=== PATIENT | female | born 1940 | race Hispanic/Latino ===

== ENCOUNTER 2021-06-09 16:02 | Inpatient (IN) | payer OTHER ==
[~2021-06-09] VITALS: Ht 157.5 cm; Wt 69.0 kg
[2021-06-09 16:34] LABS: BASOPHILS % (AUTO) 0.4 % (0.0-5.0); EOSINOPHILS % (AUTO) 1.2 % (0.0-8.0); HEMATOCRIT 28.7 % (36-48); LYMPHOCYTES % (AUTO) 30.3 % (21.0-51.0); MEAN CORPUSCULAR HEMOGLOBIN 32.1 pg (27.0-33.0); MEAN CORPUSCULAR HGB CONC 33.8 g/dL (32.0-36.0); NEUTROPHILS % (AUTO) 60.8 % (40.0-77.0); PLATELET COUNT (AUTO) 154 K/uL (130-400); RED BLOOD CELL COUNT(AUTO) 3.02 MIL/uL (4.00-5.50); RED CELL DISTRIBUTION WIDTH 16.3 % (11.0-15.5); WHITE BLOOD COUNT (AUTO) 6.8 K/uL (4.8-10.8)
[2021-06-09 16:43] LABS: INR 1.22 (0.85-1.15); PROTHROMBIN TIME 13.1 SEC (9.6-11.6)
[2021-06-09 16:44] LABS: CREATININE 2.5 mg/dL (0.5-1.5); PARTIAL THROMBOPLASTIN TIME 29.4 SEC (26.3-35.5); POTASSIUM 5.1 mmol/L (3.5-5.1)
[2021-06-09] MEDS ORDERED: FURO20TA4 PO (16:44)
[2021-06-09] MEDS ORDERED: ONDA4TAB10 PO (16:44)
[2021-06-09] MEDS ORDERED: LISI20TA24 PO ×2 (16:44→20:57)
[2021-06-09] MEDS ORDERED: LACT10SO32 PO (16:44)
[2021-06-09] MEDS ORDERED: ATOR40TA69 PO (16:44)
[2021-06-09] MEDS ORDERED: ATEN25TA PO (16:44)
[2021-06-09] MEDS ORDERED: SPIR50TA PO (16:44)
[2021-06-09] MEDS ORDERED: MIDODRINE HCL 5 MG TABLET ONE (16:47)
[2021-06-09 16:54] LABS: ALBUMIN 2.5 g/dL (3.5-5.0); BILIRUBIN,TOTAL 1.4 mg/dL (0.2-1.0); TOTAL PROTEIN, SERUM 7.5 g/dL (6.0-8.3)
[2021-06-09 17:00] LABS: % IRON SATURATION 53.2 % (22-44)
[2021-06-09] MEDS: MIDODRINE HCL 5 MG TABLET PO SCH ×2 (17:06→21:03)
[2021-06-09] MEDS: 0.9%NACL 1000ML 1,000 ML IV SCH (17:07)
[2021-06-09] MEDS ORDERED: CEFTRIAXONE 1G VIAL IV SCH (17:30)
[2021-06-09] MEDS ORDERED: ACETAMINOPHEN 325 MG TAB PO PRN (17:30)
[2021-06-09] MEDS ORDERED: ONDANSETRON 4MG INJ IV PRN (17:30)
[2021-06-09] MEDS ORDERED: PANTOPRAZOLE 40MG INJ 80 MG in 0.9%NACL 100ML 100 ML IV SCH (17:38)
[2021-06-09 17:55] LABS: RETICULOCYTE % (AUTO) 1.71 % (0.42-2.23)
[2021-06-09] MEDS: OCTREOTIDE ACETATE 1,250 MCG in 0.9% NACL 250ML 250 ML IV SCH (20:21)
[2021-06-09] MEDS ORDERED: LACT10SO75 PO (20:57)
[2021-06-09] MEDS ORDERED: GLIP1TAB6 PO (20:57)
[2021-06-09] MEDS ORDERED: ONDA-104 PO (20:57)
[2021-06-09] MEDS: INSULIN HUMULIN R 100 UNIT/ML 3ML SQ SCH (21:00)
[2021-06-09 22:03] LABS: HEMATOCRIT 27.8 % (36-48)
[2021-06-09 22:39] LABS: THYROID STIMULATING HORMONE 2.08 uIU/mL (0.36-3.74)
[2021-06-09 23:38] LABS: APPEARANCE,URINE Clear (CLEAR); BILIRUBIN,URINE Negative (NEGATIVE); COLOR,URINE Yellow (YELLOW); GLUCOSE, URINE (UA) Negative (NEGATIVE); KETONES,URINE Negative (NEGATIVE); LEUKOCYTE ESTERASE ,URINE Small (NEGATIVE); NITRATE,URINE Negative (NEGATIVE); OCCULT BLOOD,URINE Negative (NEGATIVE); PROTEIN,URINE Negative (NEGATIVE); UROBILINOGEN,URINE 0.2 mg/dL (0.2-1.0)
[2021-06-09 23:51] LABS: BACTERIA,URINE Few /HPF (None Seen); MUCUS,URINE Few LPF (None Seen); RBC,URINE 0-1 /HPF (0-1)
[2021-06-10] MEDS ORDERED: 0.9% NACL 500ML IV.SOLN 500 ML IV ONE ×2 (01:30→01:45)
[2021-06-10] MEDS: 0.9%NACL 1000ML 1,000 ML IV SCH ×2 (02:12→10:35)
[2021-06-10] MEDS ORDERED: 0.9%NACL 100ML 100 ML ONE ×2 (03:44→15:06)
[2021-06-10] MEDS ORDERED: PANTOPRAZOLE 40 MG/VIAL ONE ×2 (03:44→15:05)
[2021-06-10 07:18] LABS: BASOPHILS % (AUTO) 0.6 % (0.0-5.0); EOSINOPHILS % (AUTO) 1.8 % (0.0-8.0); HEMATOCRIT 30.3 % (36-48); LYMPHOCYTES % (AUTO) 34.5 % (21.0-51.0); MEAN CORPUSCULAR HEMOGLOBIN 31.2 pg (27.0-33.0); MEAN CORPUSCULAR HGB CONC 32.7 g/dL (32.0-36.0); MEAN CORPUSCULAR VOLUME 95.6 fL (79-99); NEUTROPHILS % (AUTO) 55.9 % (40.0-77.0); PLATELET COUNT (AUTO) 109 K/uL (130-400); RED BLOOD CELL COUNT(AUTO) 3.17 MIL/uL (4.00-5.50); WHITE BLOOD COUNT (AUTO) 5.1 K/uL (4.8-10.8)
[2021-06-10] MEDS: INSULIN HUMULIN R 100 UNIT/ML 3ML SQ SCH ×4 (07:30→21:00)
[2021-06-10 07:55] LABS: ALBUMIN 2.1 g/dL (3.5-5.0); BILIRUBIN,TOTAL 1.1 mg/dL (0.2-1.0); CREATININE 2.1 mg/dL (0.5-1.5); POTASSIUM 5.9 mmol/L (3.5-5.1); TOTAL PROTEIN, SERUM 6.5 g/dL (6.0-8.3)
[2021-06-10] MEDS: MIDODRINE HCL 5 MG TABLET PO SCH ×3 (09:00→21:00)
[2021-06-10] MEDS ORDERED: DEXTROSE 50%-WATER 50 ML DISP.SYRIN IV ONE (09:30)
[2021-06-10] MEDS ORDERED: INSULIN HUMULIN R 100 UNIT/ML 3ML IV ONE (09:30)
[2021-06-10] MEDS ORDERED: NA ZIRCON CYCLOSIL(LOKELMA 10GM) PO SCH (09:30)
[2021-06-10] MEDS ORDERED: CALCIUM GLUC 1GM/10ML VIAL IV SCH (09:30)
[2021-06-10] MEDS ORDERED: ALBUMIN (HUMAN) 25% 50 ML IV ONE (10:45)
[2021-06-10] MEDS ORDERED: ALBUMIN (HUMAN) 25% 50 ML IV SCH (11:00)
[2021-06-10] MEDS: LACTULOSE 20 GM/30 ML UDCUP PO SCH (11:00)
[2021-06-10] MEDS: CALCIUM GLUC 1GM 1 GM in 0.9%NACL 100ML 100 ML IV SCH (11:03)
[2021-06-10] MEDS: ACETAMINOPHEN 325 MG TAB PO PRN (11:08)
[2021-06-10] MEDS ORDERED: ZOSYN 3.375GM+NS 50ML 3.38 GM in 0.9%NACL 50ML 50 ML IV SCH (11:30)
[2021-06-10] MEDS: ZOSYN 3.375GM+NS 50ML 50 ML IV SCH ×2 (11:30→23:58)
[2021-06-10 12:37] LABS: GLUCOSE,BODY FLUID 126 mg/dL (1-40)
[2021-06-10 13:18] LABS: APPEARANCE BODY FLUID CLEAR (CLEAR); COLOR,BODY FLUID YELLOW (LT YELLOW); SPECIMENTYPE,BODY FLUID ASCITES; TOTAL VOLUME,BODY FLUID 3000 mL
[2021-06-10 13:25] LABS: BODY FLUID RBC 699 /cu. mm.; BODY FLUID WBC 270 /cu. mm.
[2021-06-10 13:32] LABS: BF LYMPHOCYTE 43 %; BF MESOTHELIAL 38 %; BF MONOCYTE 14 %
[2021-06-10 14:45] LABS: HEMATOCRIT 27.5 % (36-48)
[2021-06-10] MEDS ORDERED: NOREPINEPHRIN 4MG/NS 250ML 250 ML IV ONE (16:03)
[2021-06-10] MEDS: NOREPINEPHRIN 4MG/NS 250ML 250 ML IV SCH (16:20)
[2021-06-10 17:53] LABS: CREATINE KINASE, TOTAL 35 U/L (21-232); MYOGLOBIN 44 ng/mL (10-92)
[2021-06-10] MEDS: ATORVASTATIN 40 MG TABLET PO SCH (18:01)
[2021-06-10 21:10] LABS: HEMATOCRIT 31.2 % (36-48)
[2021-06-11] VITALS (7 sets, daily range): BP systolic 95–116; BP diastolic 37–56
[2021-06-11] MEDS ORDERED: PANTOPRAZOLE 40 MG/VIAL ONE (03:03)
[2021-06-11 06:43] LABS: BASOPHILS % (AUTO) 0.6 % (0.0-5.0); EOSINOPHILS % (AUTO) 1.8 % (0.0-8.0); LYMPHOCYTES % (AUTO) 28.3 % (21.0-51.0); MEAN CORPUSCULAR HEMOGLOBIN 31.3 pg (27.0-33.0); MEAN CORPUSCULAR HGB CONC 32.8 g/dL (32.0-36.0); MEAN CORPUSCULAR VOLUME 95.4 fL (79-99); MONOCYTES % (AUTO) 6.8 % (3.0-13.0); NEUTROPHILS % (AUTO) 62.4 % (40.0-77.0); PLATELET COUNT (AUTO) 160 K/uL (130-400); RED BLOOD CELL COUNT(AUTO) 3.04 MIL/uL (4.00-5.50); RED CELL DISTRIBUTION WIDTH 16.1 % (11.0-15.5); WHITE BLOOD COUNT (AUTO) 8.3 K/uL (4.8-10.8)
[2021-06-11 07:06] LABS: ALBUMIN 2.1 g/dL (3.5-5.0); BILIRUBIN,TOTAL 1.5 mg/dL (0.2-1.0); CREATININE 1.8 mg/dL (0.5-1.5); MAGNESIUM 1.8 mg/dL (1.80-2.40); POTASSIUM 4.7 mmol/L (3.5-5.1); TOTAL PROTEIN, SERUM 6.1 g/dL (6.0-8.3)
[2021-06-11] MEDS: INSULIN HUMULIN R 100 UNIT/ML 3ML SQ SCH ×4 (07:30→21:00)
[2021-06-11] MEDS: MIDODRINE HCL 5 MG TABLET PO SCH ×3 (08:20→21:06)
[2021-06-11 09:07] LABS: INR 1.38 (0.85-1.15); PROTHROMBIN TIME 14.6 SEC (9.6-11.6)
[2021-06-11] MEDS: CALCIUM GLUC 1GM 1 GM in 0.9%NACL 100ML 100 ML IV SCH (09:30)
[2021-06-11] MEDS: LACTULOSE 20 GM/30 ML UDCUP PO SCH (10:58)
[2021-06-11] MEDS: PANTOPRAZOLE 40 MG/VIAL IVP SCH ×2 (10:58→21:06)
[2021-06-11] MEDS: ALBUMIN (HUMAN) 5% 250 ML IV SCH ×3 (11:00→22:06)
[2021-06-11] MEDS: ZOSYN 3.375GM+NS 50ML 50 ML IV SCH (11:30)
[2021-06-11 12:09] LABS: HEMATOCRIT 29.1 % (36-48)
[2021-06-11] MEDS ORDERED: DOXYCYCLINE 100MG IVPB (VIAL) IVPB SCH (15:00)
[2021-06-11] MEDS: DOXYCYCLINE 100MG+NS 250ML 250 ML IV SCH (15:00)
[2021-06-11] MEDS ORDERED: 0.9% NACL 250ML IVPB SCH (15:00)
[2021-06-11] MEDS: OCTREOTIDE ACETATE 1,250 MCG in 0.9% NACL 250ML 250 ML IV SCH (15:43)
[2021-06-11 16:52] LABS: HEMATOCRIT 29.9 % (36-48)
[2021-06-11] MEDS: ATORVASTATIN 40 MG TABLET PO SCH (18:29)
[2021-06-12] VITALS (35 sets, daily range): BP systolic 79–122; BP diastolic 16–93
[2021-06-12] MEDS ORDERED: MORPHINE 2 MG SYG IVP ONE (02:42)
[2021-06-12] MEDS: DOXYCYCLINE 100MG+NS 250ML 250 ML IV SCH ×2 (03:09→14:42)
[2021-06-12] MEDS ORDERED: MORPHINE 2 MG SYG ONE (03:10)
[2021-06-12] MEDS: ZOSYN 3.375GM+NS 50ML 50 ML IV SCH ×3 (04:52→23:16)
[2021-06-12] MEDS: ALBUMIN (HUMAN) 5% 250 ML IV SCH ×4 (04:53→23:16)
[2021-06-12 05:32] LABS: BASOPHILS % (AUTO) 0.6 % (0.0-5.0); EOSINOPHILS % (AUTO) 2.5 % (0.0-8.0); HEMATOCRIT 24.4 % (36-48); LYMPHOCYTES % (AUTO) 38.1 % (21.0-51.0); MEAN CORPUSCULAR HEMOGLOBIN 31.6 pg (27.0-33.0); MEAN CORPUSCULAR HGB CONC 33.2 g/dL (32.0-36.0); MEAN CORPUSCULAR VOLUME 95.3 fL (79-99); MONOCYTES % (AUTO) 9.1 % (3.0-13.0); NEUTROPHILS % (AUTO) 49.4 % (40.0-77.0); PLATELET COUNT (AUTO) 130 K/uL (130-400); RED BLOOD CELL COUNT(AUTO) 2.56 MIL/uL (4.00-5.50); WHITE BLOOD COUNT (AUTO) 6.4 K/uL (4.8-10.8)
[2021-06-12 06:04] LABS: BILIRUBIN,TOTAL 1.2 mg/dL (0.2-1.0); CREATININE 1.8 mg/dL (0.5-1.5); POTASSIUM 4.2 mmol/L (3.5-5.1); TOTAL PROTEIN, SERUM 5.3 g/dL (6.0-8.3)
[2021-06-12] MEDS: INSULIN HUMULIN R 100 UNIT/ML 3ML SQ SCH ×4 (07:30→21:00)
[2021-06-12] MEDS: PANTOPRAZOLE 40 MG/VIAL IVP SCH ×2 (09:32→20:32)
[2021-06-12] MEDS: MIDODRINE HCL 5 MG TABLET PO SCH ×3 (09:32→20:32)
[2021-06-12] MEDS: LACTULOSE 20 GM/30 ML UDCUP PO SCH (09:33)
[2021-06-12] MEDS: NOREPINEPHRIN 4MG/NS 250ML 250 ML IV SCH ×2 (13:00→20:56)
[2021-06-12] MEDS: ATORVASTATIN 40 MG TABLET PO SCH (17:22)
[2021-06-12] MEDS ORDERED: MAG/ALUM/SIMETH 30 ML UDCUP PO PRN (20:00)
[2021-06-13] VITALS (36 sets, daily range): BP systolic 81–122; BP diastolic 40–90
[2021-06-13] MEDS: COSYNTROPIN 0.25 MG VIAL IVP SCH (03:02)
[2021-06-13] MEDS: INSULIN HUMULIN R 100 UNIT/ML 3ML SQ SCH ×4 (06:32→21:00)
[2021-06-13] MEDS: DOXYCYCLINE 100MG+NS 250ML 250 ML IV SCH ×2 (06:45→15:51)
[2021-06-13] MEDS: ALBUMIN (HUMAN) 5% 250 ML IV SCH ×4 (06:45→23:36)
[2021-06-13 06:47] LABS: HEMATOCRIT 23.7 % (36-48); MEAN CORPUSCULAR HEMOGLOBIN 31.3 pg (27.0-33.0); MEAN CORPUSCULAR HGB CONC 32.5 g/dL (32.0-36.0); MEAN CORPUSCULAR VOLUME 96.3 fL (79-99); RED BLOOD CELL COUNT(AUTO) 2.46 MIL/uL (4.00-5.50); RED CELL DISTRIBUTION WIDTH 16.5 % (11.0-15.5); WHITE BLOOD COUNT (AUTO) 4.2 K/uL (4.8-10.8)
[2021-06-13 07:00] LABS: CREATININE 1.6 mg/dL (0.5-1.5); POTASSIUM 4.1 mmol/L (3.5-5.1)
[2021-06-13] MEDS: MIDODRINE HCL 5 MG TABLET PO SCH ×3 (08:54→21:05)
[2021-06-13] MEDS: LACTULOSE 20 GM/30 ML UDCUP PO SCH ×2 (08:54→11:35)
[2021-06-13] MEDS: PANTOPRAZOLE 40 MG/VIAL IVP SCH ×2 (08:54→21:05)
[2021-06-13] MEDS: NOREPINEPHRIN 4MG/NS 250ML 250 ML IV SCH (10:30)
[2021-06-13] MEDS: ZOSYN 3.375GM+NS 50ML 50 ML IV SCH ×2 (10:54→23:36)
[2021-06-13] MEDS: HYDROCORTISONE SOD SUCCINATE 100 MG/2 ML VIAL IV SCH ×2 (13:03→21:05)
[2021-06-13 16:06] LABS: HEMATOCRIT 22.2 % (36-48)
[2021-06-13 16:22] LABS: ALBUMIN 3.3 g/dL (3.5-5.0); BILIRUBIN,TOTAL 1.7 mg/dL (0.2-1.0); CREATININE 1.7 mg/dL (0.5-1.5)
[2021-06-13] MEDS: ATORVASTATIN 40 MG TABLET PO SCH (16:56)
[2021-06-13] MEDS ORDERED: PEG 3350/NA SULF,BICARB,CL/KCL 4000 ML SOLN PO SCH (17:30)
[2021-06-13] MEDS: OCTREOTIDE ACETATE 1,250 MCG in 0.9% NACL 250ML 250 ML IV SCH (18:38)
[2021-06-14] VITALS (30 sets, daily range): BP systolic 81–134; BP diastolic 34–61
[2021-06-14] MEDS: DOXYCYCLINE 100MG+NS 250ML 250 ML IV SCH ×2 (02:53→15:22)
[2021-06-14 04:36] LABS: LYMPHOCYTES % (AUTO) 22.1 % (21.0-51.0); MEAN CORPUSCULAR HGB CONC 32.5 g/dL (32.0-36.0); MEAN CORPUSCULAR VOLUME 98.5 fL (79-99); MONOCYTES % (AUTO) 4.6 % (3.0-13.0); NEUTROPHILS % (AUTO) 72.9 % (40.0-77.0); PLATELET COUNT (AUTO) 65 K/uL (130-400); RED BLOOD CELL COUNT(AUTO) 2.03 MIL/uL (4.00-5.50); RED CELL DISTRIBUTION WIDTH 16.5 % (11.0-15.5); WHITE BLOOD COUNT (AUTO) 2.6 K/uL (4.8-10.8)
[2021-06-14] MEDS: ALBUMIN (HUMAN) 5% 250 ML IV SCH ×3 (05:33→16:58)
[2021-06-14] MEDS: HYDROCORTISONE SOD SUCCINATE 100 MG/2 ML VIAL IV SCH ×3 (05:33→21:19)
[2021-06-14] MEDS: MAGNESIUM 2GM PREMIX 50ML 50 ML IV PRN (06:21)
[2021-06-14 06:41] LABS: LYMPHOCYTES % (MANUAL) 21 % (22-44); MAN.DIFF COMMENT-IMPRESSION MANUAL DIFFERENTIAL; MONOCYTES % (MANUAL) 4 % (2-9); PLATELET MORPHOLOGY COMMENT DECREASED; SEGMENTED NEUTROPHILS % 75 % (40-70)
[2021-06-14] MEDS: INSULIN HUMULIN R 100 UNIT/ML 3ML SQ SCH ×4 (07:22→21:00)
[2021-06-14 07:48] LABS: ALBUMIN 3.2 g/dL (3.5-5.0); BILIRUBIN,TOTAL 1.4 mg/dL (0.2-1.0); CREATININE 1.7 mg/dL (0.5-1.5); POTASSIUM 3.7 mmol/L (3.5-5.1); TOTAL PROTEIN, SERUM 5.6 g/dL (6.0-8.3)
[2021-06-14] MEDS: MIDODRINE HCL 5 MG TABLET PO SCH ×3 (08:56→21:20)
[2021-06-14] MEDS: PANTOPRAZOLE 40 MG/VIAL IVP SCH ×2 (08:56→21:20)
[2021-06-14] MEDS: LACTULOSE 20 GM/30 ML UDCUP PO SCH ×2 (08:57→10:51)
[2021-06-14] MEDS ORDERED: SODIUM BICARBONATE 650 MG TAB PO PRN (09:30)
[2021-06-14] MEDS: ZOSYN 3.375GM+NS 50ML 50 ML IV SCH ×2 (10:59→23:15)
[2021-06-14] MEDS: COSYNTROPIN 0.25 MG VIAL IVP SCH (11:17)
[2021-06-14] MEDS ORDERED: PROPOFOL 10 MG/ML 20ML VIAL IV ONE (12:45)
[2021-06-14 14:03] LABS: HEMATOCRIT 24.5 % (36-48)
[2021-06-14 16:28] LABS: ABG BASE EXCESS -11.9 mmol/L (-2.0-3.0); ABG OXYGEN SATURATION 93.6 % (95.0-99.0); ABG PCO2 32 mmHg (32-45)
[2021-06-14 18:41] LABS: CREATININE 1.7 mg/dL (0.5-1.5); POTASSIUM 3.5 mmol/L (3.5-5.1)
[2021-06-14] MEDS: ATORVASTATIN 40 MG TABLET PO SCH (19:25)
[2021-06-14] MEDS ORDERED: 0.9%NACL 50ML 50 ML IV ONE (23:14)
[2021-06-15] VITALS (21 sets, daily range): BP systolic 99–126; BP diastolic 40–57
[2021-06-15 03:52] LABS: LYMPHOCYTES % (AUTO) 13.7 % (21.0-51.0); MEAN CORPUSCULAR HGB CONC 32.7 g/dL (32.0-36.0); MEAN CORPUSCULAR VOLUME 94.9 fL (79-99); MONOCYTES % (AUTO) 5.2 % (3.0-13.0); NEUTROPHILS % (AUTO) 80.5 % (40.0-77.0); PLATELET COUNT (AUTO) 70 K/uL (130-400); RED BLOOD CELL COUNT(AUTO) 2.74 MIL/uL (4.00-5.50); RED CELL DISTRIBUTION WIDTH 17.3 % (11.0-15.5); WHITE BLOOD COUNT (AUTO) 5.2 K/uL (4.8-10.8)
[2021-06-15 04:02] LABS: ALBUMIN 3.4 g/dL (3.5-5.0); BILIRUBIN,TOTAL 1.5 mg/dL (0.2-1.0); POTASSIUM 3.7 mmol/L (3.5-5.1); TOTAL PROTEIN, SERUM 5.9 g/dL (6.0-8.3)
[2021-06-15] MEDS: DOXYCYCLINE 100MG+NS 250ML 250 ML IV SCH ×2 (05:12→14:41)
[2021-06-15] MEDS: HYDROCORTISONE SOD SUCCINATE 100 MG/2 ML VIAL IV SCH ×2 (05:13→12:34)
[2021-06-15] MEDS: INSULIN HUMULIN R 100 UNIT/ML 3ML SQ SCH ×4 (06:43→20:37)
[2021-06-15] MEDS: LACTULOSE 20 GM/30 ML UDCUP PO SCH ×2 (08:31→10:28)
[2021-06-15] MEDS: PANTOPRAZOLE 40 MG/VIAL IVP SCH ×2 (08:31→20:36)
[2021-06-15] MEDS: MIDODRINE HCL 5 MG TABLET PO SCH ×3 (08:32→20:36)
[2021-06-15] MEDS ORDERED: HYDROCORTISONE 25 MG SUPPOSITORY PR SCH (09:30)
[2021-06-15] MEDS ORDERED: HYDROCORTISONE 25 MG SUPPOSITORY PR PRN (09:30)
[2021-06-15] MEDS: FUROSEMIDE 20 MG TABLET PO SCH (10:24)
[2021-06-15] MEDS: SUCRALFATE 1 GM TABLET PO SCH ×2 (10:33→16:57)
[2021-06-15] MEDS: ATORVASTATIN 40 MG TABLET PO SCH (16:57)
[2021-06-16 04:00] VITALS: BP 106/59
[2021-06-16] MEDS: INSULIN HUMULIN R 100 UNIT/ML 3ML SQ SCH ×4 (06:30→20:28)
[2021-06-16 06:38] LABS: HEMATOCRIT 24.5 % (36-48); LYMPHOCYTES % (AUTO) 12.3 % (21.0-51.0); MEAN CORPUSCULAR HEMOGLOBIN 30.7 pg (27.0-33.0); MEAN CORPUSCULAR HGB CONC 32.2 g/dL (32.0-36.0); MEAN CORPUSCULAR VOLUME 95.3 fL (79-99); MONOCYTES % (AUTO) 5.7 % (3.0-13.0); NEUTROPHILS % (AUTO) 81.5 % (40.0-77.0); NUCLEATED RED BLOOD CELLS 0.5 % (0.0-0.19); PLATELET COUNT (AUTO) 69 K/uL (130-400); RED BLOOD CELL COUNT(AUTO) 2.57 MIL/uL (4.00-5.50); RED CELL DISTRIBUTION WIDTH 18.2 % (11.0-15.5); WHITE BLOOD COUNT (AUTO) 5.6 K/uL (4.8-10.8)
[2021-06-16 06:45] LABS: CREATININE 2.8 mg/dL (0.5-1.5); POTASSIUM 3.9 mmol/L (3.5-5.1)
[2021-06-16 07:44] VITALS: BP 102/44
[2021-06-16] MEDS: SUCRALFATE 1 GM TABLET PO SCH ×3 (08:40→17:17)
[2021-06-16] MEDS: PANTOPRAZOLE 40 MG/VIAL IVP SCH ×2 (08:40→20:21)
[2021-06-16] MEDS: MIDODRINE HCL 5 MG TABLET PO SCH ×3 (08:40→20:21)
[2021-06-16] MEDS: LACTULOSE 20 GM/30 ML UDCUP PO SCH ×2 (08:41→11:30)
[2021-06-16] MEDS: FUROSEMIDE 20 MG TABLET PO SCH (08:42)
[2021-06-16 09:49] LABS: HEMOGLOBIN A1C 6.3 % (4.0-6.0)
[2021-06-16 11:31] VITALS: BP 113/50
[2021-06-16 15:27] VITALS: BP 122/64
[2021-06-16] MEDS: ATORVASTATIN 40 MG TABLET PO SCH (17:17)
[2021-06-17] VITALS (8 sets, daily range): BP systolic 90–133; BP diastolic 41–59
[2021-06-17 06:04] LABS: HEMATOCRIT 25.3 % (36-48); MEAN CORPUSCULAR HEMOGLOBIN 31.3 pg (27.0-33.0); MEAN CORPUSCULAR HGB CONC 33.2 g/dL (32.0-36.0); MEAN CORPUSCULAR VOLUME 94.4 fL (79-99); NUCLEATED RED BLOOD CELLS 0.3 % (0.0-0.19); RED BLOOD CELL COUNT(AUTO) 2.68 MIL/uL (4.00-5.50); WHITE BLOOD COUNT (AUTO) 5.8 K/uL (4.8-10.8)
[2021-06-17] MEDS: INSULIN HUMULIN R 100 UNIT/ML 3ML SQ SCH ×4 (06:04→21:00)
[2021-06-17 06:16] LABS: CREATININE 3.4 mg/dL (0.5-1.5); POTASSIUM 3.7 mmol/L (3.5-5.1)
[2021-06-17] MEDS ORDERED: 0.9%NACL 1000ML 1,000 ML IV SCH (06:30)
[2021-06-17] MEDS: PANTOPRAZOLE 40 MG/VIAL IVP SCH (09:13)
[2021-06-17] MEDS: MIDODRINE HCL 5 MG TABLET PO SCH ×3 (09:13→20:03)
[2021-06-17] MEDS: LACTULOSE 20 GM/30 ML UDCUP PO SCH ×2 (09:13→12:49)
[2021-06-17] MEDS: SUCRALFATE 1 GM TABLET PO SCH ×3 (09:14→16:34)
[2021-06-17] MEDS: SODIUM BICARBONATE 650 MG TAB PO SCH ×2 (14:41→20:03)
[2021-06-17] MEDS: 0.9%NACL 1000ML 1,000 ML IV SCH (14:47)
[2021-06-17] MEDS: ATORVASTATIN 40 MG TABLET PO SCH (16:34)
[2021-06-17] MEDS: FAMOTIDINE 20MG TAB PO SCH (20:03)
[2021-06-18 04:00] VITALS: BP 109/50
[2021-06-18] MEDS: INSULIN HUMULIN R 100 UNIT/ML 3ML SQ SCH ×4 (05:31→20:08)
[2021-06-18 05:34] LABS: CREATININE 3.7 mg/dL (0.5-1.5); POTASSIUM 3.7 mmol/L (3.5-5.1)
[2021-06-18] MEDS: SUCRALFATE 1 GM TABLET PO SCH ×3 (06:44→16:31)
[2021-06-18] MEDS: 0.9%NACL 1000ML 1,000 ML IV SCH ×2 (06:45→21:39)
[2021-06-18 08:00] VITALS: BP 105/47
[2021-06-18] MEDS: SODIUM BICARBONATE 650 MG TAB PO SCH ×2 (09:15→21:36)
[2021-06-18] MEDS: MIDODRINE HCL 5 MG TABLET PO SCH ×3 (09:15→21:00)
[2021-06-18] MEDS: LACTULOSE 20 GM/30 ML UDCUP PO SCH ×2 (09:16→11:56)
[2021-06-18 11:54] VITALS: BP 120/46
[2021-06-18 16:00] VITALS: BP 139/54
[2021-06-18] MEDS: ATORVASTATIN 40 MG TABLET PO SCH (16:31)
[2021-06-18 18:08] LABS: APPEARANCE,URINE Cloudy (CLEAR); BILIRUBIN,URINE Negative (NEGATIVE); COLOR,URINE Orange (YELLOW); GLUCOSE, URINE (UA) Negative (NEGATIVE); KETONES,URINE Trace mg/dL (NEGATIVE); LEUKOCYTE ESTERASE ,URINE Moderate (NEGATIVE); NITRATE,URINE Negative (NEGATIVE); OCCULT BLOOD,URINE Large (NEGATIVE); PROTEIN,URINE 300 mg/dL (NEGATIVE)
[2021-06-18 18:10] LABS: CREATININE,URINE RANDOM 89 mg/dL (30-135); SODIUM,URINE RANDOM 23 mmol/l (40-220)
[2021-06-18 18:22] LABS: RBC,URINE 51-100 /HPF (0-1)
[2021-06-18 18:23] LABS: BACTERIA,URINE Moderate /HPF (None Seen); MUCUS,URINE Few LPF (None Seen); SQUAMOUS EPITHELIAL CELL,UR Few /HPF (0-2)
[2021-06-18 19:42] VITALS: BP 145/65
[2021-06-18] MEDS: FAMOTIDINE 20MG TAB PO SCH (21:36)
[2021-06-18] MEDS: CEFTRIAXONE 1G VIAL IVP SCH (21:36)
[2021-06-18 23:57] VITALS: BP 116/74
[2021-06-19 04:19] VITALS: BP 101/52
[2021-06-19] MEDS: SUCRALFATE 1 GM TABLET PO SCH ×3 (06:33→16:58)
[2021-06-19] MEDS: INSULIN HUMULIN R 100 UNIT/ML 3ML SQ SCH ×4 (06:35→20:38)
[2021-06-19 08:00] VITALS: BP 115/46
[2021-06-19] MEDS: LACTULOSE 20 GM/30 ML UDCUP PO SCH ×2 (08:41→10:31)
[2021-06-19] MEDS: MIDODRINE HCL 5 MG TABLET PO SCH ×3 (08:41→20:38)
[2021-06-19] MEDS: SODIUM BICARBONATE 650 MG TAB PO SCH ×2 (08:42→20:38)
[2021-06-19 09:14] LABS: CREATININE 3.7 mg/dL (0.5-1.5); POTASSIUM 3.5 mmol/L (3.5-5.1)
[2021-06-19 10:59] LABS: HEMATOCRIT 26.9 % (36-48); MEAN CORPUSCULAR HGB CONC 33.1 g/dL (32.0-36.0); MEAN CORPUSCULAR VOLUME 93.7 fL (79-99); PLATELET COUNT (AUTO) 69 K/uL (130-400); RED BLOOD CELL COUNT(AUTO) 2.87 MIL/uL (4.00-5.50); RED CELL DISTRIBUTION WIDTH 17.6 % (11.0-15.5); WHITE BLOOD COUNT (AUTO) 8.1 K/uL (4.8-10.8)
[2021-06-19] MEDS: NYSTATIN 100000 UNIT/ML 5ML UDCUP PO SCH ×2 (11:40→20:37)
[2021-06-19 11:42] LABS: LYMPHOCYTES % (MANUAL) 14 % (22-44); MAN.DIFF COMMENT-IMPRESSION MANUAL DIFFERENTIAL; MONOCYTES % (MANUAL) 3 % (2-9); PLATELET MORPHOLOGY COMMENT DECREASED; SEGMENTED NEUTROPHILS % 83 % (40-70)
[2021-06-19 11:50] VITALS: BP 115/48
[2021-06-19] MEDS ORDERED: HYDROCORTISONE 25 MG SUPPOSITORY PR SCH (12:00)
[2021-06-19 16:00] VITALS: BP 139/49
[2021-06-19] MEDS: ATORVASTATIN 40 MG TABLET PO SCH (16:58)
[2021-06-19 19:41] VITALS: BP 128/55
[2021-06-19] MEDS: FAMOTIDINE 20MG TAB PO SCH (20:38)
[2021-06-19] MEDS: CEFTRIAXONE 1G VIAL IVP SCH (20:38)
[2021-06-19] MEDS: HYDROCORTISONE 25 MG SUPPOSITORY PR SCH (21:01)
[2021-06-19 23:55] VITALS: BP 121/64
[2021-06-20 03:28] VITALS: BP 112/60
[2021-06-20] MEDS: NYSTATIN 100000 UNIT/ML 5ML UDCUP PO SCH ×3 (04:12→21:12)
[2021-06-20] MEDS: SUCRALFATE 1 GM TABLET PO SCH ×3 (05:28→16:38)
[2021-06-20] MEDS: INSULIN HUMULIN R 100 UNIT/ML 3ML SQ SCH ×4 (05:28→21:00)
[2021-06-20 06:01] LABS: BASOPHILS % (AUTO) 0.1 % (0.0-5.0); HEMATOCRIT 26.2 % (36-48); MEAN CORPUSCULAR HEMOGLOBIN 30.9 pg (27.0-33.0); MEAN CORPUSCULAR HGB CONC 32.8 g/dL (32.0-36.0); MEAN CORPUSCULAR VOLUME 94.2 fL (79-99); NEUTROPHILS % (AUTO) 65.7 % (40.0-77.0); NUCLEATED RED BLOOD CELLS 0.2 % (0.0-0.19); PLATELET COUNT (AUTO) 73 K/uL (130-400); RED BLOOD CELL COUNT(AUTO) 2.78 MIL/uL (4.00-5.50); RED CELL DISTRIBUTION WIDTH 17.8 % (11.0-15.5); WHITE BLOOD COUNT (AUTO) 8.6 K/uL (4.8-10.8)
[2021-06-20 06:28] LABS: ALBUMIN 2.7 g/dL (3.5-5.0); BILIRUBIN,TOTAL 1.2 mg/dL (0.2-1.0); MAGNESIUM 1.7 mg/dL (1.80-2.40); POTASSIUM 3.5 mmol/L (3.5-5.1); TOTAL PROTEIN, SERUM 5.7 g/dL (6.0-8.3)
[2021-06-20 08:00] VITALS: BP 117/50
[2021-06-20] MEDS: SODIUM BICARBONATE 650 MG TAB PO SCH ×2 (09:10→22:02)
[2021-06-20] MEDS: MIDODRINE HCL 5 MG TABLET PO SCH ×3 (09:10→22:02)
[2021-06-20] MEDS: LACTULOSE 20 GM/30 ML UDCUP PO SCH (09:10)
[2021-06-20] MEDS: HYDROCORTISONE 25 MG SUPPOSITORY PR SCH ×2 (09:11→22:03)
[2021-06-20 11:45] VITALS: BP 133/52
[2021-06-20] MEDS: MAGNESIUM 2GM PREMIX 50ML 50 ML IV PRN (11:46)
[2021-06-20 16:00] VITALS: BP 128/52
[2021-06-20] MEDS: ATORVASTATIN 40 MG TABLET PO SCH (16:38)
[2021-06-20 19:30] VITALS: BP 120/53
[2021-06-20] MEDS: CEFTRIAXONE 1G VIAL IVP SCH (21:13)
[2021-06-20] MEDS: FAMOTIDINE 20MG TAB PO SCH (22:03)
[2021-06-20 23:59] VITALS: BP 108/47
[2021-06-21] MEDS: NYSTATIN 100000 UNIT/ML 5ML UDCUP PO SCH ×3 (02:07→21:18)
[2021-06-21 03:55] VITALS: BP 100/40
[2021-06-21 05:21] LABS: HEMATOCRIT 23.4 % (36-48); MEAN CORPUSCULAR HEMOGLOBIN 30.8 pg (27.0-33.0); MEAN CORPUSCULAR HGB CONC 33.3 g/dL (32.0-36.0); MEAN CORPUSCULAR VOLUME 92.5 fL (79-99); PLATELET COUNT (AUTO) 67 K/uL (130-400); RED BLOOD CELL COUNT(AUTO) 2.53 MIL/uL (4.00-5.50); RED CELL DISTRIBUTION WIDTH 18.1 % (11.0-15.5)
[2021-06-21 05:35] LABS: INR 1.67 (0.85-1.15); PROTHROMBIN TIME 17.4 SEC (9.6-11.6)
[2021-06-21 05:37] LABS: CREATININE 4.1 mg/dL (0.5-1.5); PARTIAL THROMBOPLASTIN TIME 42.3 SEC (26.3-35.5); POTASSIUM 3.7 mmol/L (3.5-5.1)
[2021-06-21] MEDS: INSULIN HUMULIN R 100 UNIT/ML 3ML SQ SCH ×4 (05:47→19:48)
[2021-06-21 06:10] LABS: EOSINOPHILS % (MANUAL) 2 % (1-6); LYMPHOCYTES % (MANUAL) 18 % (22-44); MONOCYTES % (MANUAL) 4 % (2-9); SEGMENTED NEUTROPHILS % 76 % (40-70)
[2021-06-21 06:12] LABS: MAN.DIFF COMMENT-IMPRESSION MANUAL DIFFERENTIAL; PLATELET MORPHOLOGY COMMENT MARKED DECREASE
[2021-06-21] MEDS: SUCRALFATE 1 GM TABLET PO SCH ×3 (06:33→17:24)
[2021-06-21 08:00] VITALS: BP 110/51
[2021-06-21] MEDS: LACTULOSE 20 GM/30 ML UDCUP PO SCH (09:41)
[2021-06-21] MEDS: SODIUM BICARBONATE 650 MG TAB PO SCH ×2 (09:42→21:18)
[2021-06-21] MEDS: MIDODRINE HCL 5 MG TABLET PO SCH ×3 (09:42→21:18)
[2021-06-21] MEDS: HYDROCORTISONE 25 MG SUPPOSITORY PR SCH ×2 (09:42→21:19)
[2021-06-21] MEDS ORDERED: FLUCONAZOLE 100 MG TAB PO SCH (11:30)
[2021-06-21 11:50] VITALS: BP 116/61
[2021-06-21 16:00] VITALS: BP 126/61
[2021-06-21] MEDS: ATORVASTATIN 40 MG TABLET PO SCH (17:24)
[2021-06-21 20:11] VITALS: BP 111/53
[2021-06-21] MEDS: CEFTRIAXONE 1G VIAL IVP SCH (20:59)
[2021-06-21] MEDS: FAMOTIDINE 20MG TAB PO SCH (21:19)
[2021-06-21 23:24] VITALS: BP 108/46
[2021-06-22 03:39] VITALS: BP 109/51
[2021-06-22] MEDS: INSULIN HUMULIN R 100 UNIT/ML 3ML SQ SCH ×4 (05:47→21:00)
[2021-06-22] MEDS: NYSTATIN 100000 UNIT/ML 5ML UDCUP PO SCH ×3 (06:08→21:21)
[2021-06-22] MEDS: SUCRALFATE 1 GM TABLET PO SCH ×3 (06:08→16:43)
[2021-06-22] MEDS: ACETAMINOPHEN 325 MG TAB PO PRN (07:07)
[2021-06-22 08:00] VITALS: BP 107/45
[2021-06-22] MEDS ORDERED: OCTREOTIDE ACETATE 100 MCG/ML AMP SQ SCH (09:26)
[2021-06-22] MEDS ORDERED: FUROSEMIDE 40 MG TABLET PO SCH (09:27)
[2021-06-22] MEDS: LACTULOSE 20 GM/30 ML UDCUP PO SCH (10:40)
[2021-06-22] MEDS: MIDODRINE HCL 5 MG TABLET PO SCH ×3 (10:40→21:21)
[2021-06-22] MEDS: SODIUM BICARBONATE 650 MG TAB PO SCH ×2 (10:40→21:20)
[2021-06-22] MEDS: HYDROCORTISONE 25 MG SUPPOSITORY PR SCH ×2 (10:41→21:21)
[2021-06-22] MEDS: OCTREOTIDE ACETATE 100 MCG/ML AMP SQ SCH ×3 (10:43→21:21)
[2021-06-22 11:20] VITALS: BP 133/70
[2021-06-22] MEDS ORDERED: PHARMACY COMMUNICATION MISC SCH (15:30)
[2021-06-22 16:01] LABS: BASOPHILS % (AUTO) 0.2 % (0.0-5.0); EOSINOPHILS % (AUTO) 2.7 % (0.0-8.0); HEMATOCRIT 24.4 % (36-48); LYMPHOCYTES % (AUTO) 27.2 % (21.0-51.0); MEAN CORPUSCULAR HEMOGLOBIN 31.7 pg (27.0-33.0); MEAN CORPUSCULAR HGB CONC 33.6 g/dL (32.0-36.0); MEAN CORPUSCULAR VOLUME 94.2 fL (79-99); MONOCYTES % (AUTO) 10.4 % (3.0-13.0); PLATELET COUNT (AUTO) 87 K/uL (130-400); RED BLOOD CELL COUNT(AUTO) 2.59 MIL/uL (4.00-5.50); RED CELL DISTRIBUTION WIDTH 18.9 % (11.0-15.5); WHITE BLOOD COUNT (AUTO) 8.5 K/uL (4.8-10.8)
[2021-06-22 16:15] LABS: B-TYPE NATRIURETIC PEPTIDE 282 pg/mL (0-100)
[2021-06-22 16:19] LABS: CREATININE 3.8 mg/dL (0.5-1.5); POTASSIUM 3.6 mmol/L (3.5-5.1)
[2021-06-22 16:21] VITALS: BP 114/53
[2021-06-22 16:24] LABS: ALBUMIN 2.7 g/dL (3.5-5.0); BILIRUBIN,TOTAL 1.3 mg/dL (0.2-1.0); CRP QUANTITATIVE 46.1 mg/L (0.00-9.0); TOTAL PROTEIN, SERUM 5.8 g/dL (6.0-8.3)
[2021-06-22 16:52] LABS: INR 1.58 (0.85-1.15); PROTHROMBIN TIME 16.5 SEC (9.6-11.6)
[2021-06-22 16:54] LABS: PARTIAL THROMBOPLASTIN TIME 43.1 SEC (26.3-35.5)
[2021-06-22 17:01] LABS: ERYTHROCYTE SEDIMENTATION RATE 5 MM/HR (0-30)
[2021-06-22] MEDS: ALBUMIN (HUMAN) 25% 100 ML IV SCH ×3 (18:38→21:12)
[2021-06-22] MEDS: ATORVASTATIN 40 MG TABLET PO SCH (18:38)
[2021-06-22] MEDS: CEFTRIAXONE 1G VIAL IVP SCH (19:51)
[2021-06-22 20:02] VITALS: BP 109/52
[2021-06-22] MEDS: FAMOTIDINE 20MG TAB PO SCH (21:21)
[2021-06-22 23:13] VITALS: BP 103/51
[2021-06-23 03:38] VITALS: BP 112/48
[2021-06-23] MEDS: INSULIN HUMULIN R 100 UNIT/ML 3ML SQ SCH ×4 (06:09→21:00)
[2021-06-23] MEDS: NYSTATIN 100000 UNIT/ML 5ML UDCUP PO SCH ×3 (06:31→20:10)
[2021-06-23] MEDS: SUCRALFATE 1 GM TABLET PO SCH ×3 (06:31→16:46)
[2021-06-23] MEDS: OCTREOTIDE ACETATE 100 MCG/ML AMP SQ SCH ×3 (06:32→20:10)
[2021-06-23 07:01] LABS: BASOPHILS % (AUTO) 0.2 % (0.0-5.0); LYMPHOCYTES % (AUTO) 30.8 % (21.0-51.0); MEAN CORPUSCULAR HEMOGLOBIN 30.8 pg (27.0-33.0); MEAN CORPUSCULAR HGB CONC 32.9 g/dL (32.0-36.0); MEAN CORPUSCULAR VOLUME 93.7 fL (79-99); MONOCYTES % (AUTO) 10.5 % (3.0-13.0); NEUTROPHILS % (AUTO) 55.3 % (40.0-77.0); PLATELET COUNT (AUTO) 67 K/uL (130-400); RED BLOOD CELL COUNT(AUTO) 2.21 MIL/uL (4.00-5.50); RED CELL DISTRIBUTION WIDTH 18.9 % (11.0-15.5); WHITE BLOOD COUNT (AUTO) 4.7 K/uL (4.8-10.8)
[2021-06-23 07:05] LABS: HEMATOCRIT 20.7 % (36-48)
[2021-06-23 07:13] LABS: CREATININE 3.8 mg/dL (0.5-1.5); POTASSIUM 3.6 mmol/L (3.5-5.1)
[2021-06-23 08:00] VITALS: BP 105/59
[2021-06-23 09:08] LABS: HEMATOCRIT 23.1 % (36-48)
[2021-06-23] MEDS: LACTULOSE 20 GM/30 ML UDCUP PO SCH (09:10)
[2021-06-23] MEDS: MIDODRINE HCL 5 MG TABLET PO SCH ×3 (09:10→20:10)
[2021-06-23] MEDS: HYDROCORTISONE 25 MG SUPPOSITORY PR SCH ×2 (09:11→20:11)
[2021-06-23] MEDS: SODIUM BICARBONATE 650 MG TAB PO SCH ×2 (09:11→20:11)
[2021-06-23] MEDS: ALBUMIN (HUMAN) 25% 100 ML IV SCH (09:14)
[2021-06-23 12:00] VITALS: BP 118/51
[2021-06-23 16:00] VITALS: BP 132/62
[2021-06-23] MEDS: ATORVASTATIN 40 MG TABLET PO SCH (16:46)
[2021-06-23 19:00] VITALS: BP 116/35
[2021-06-23] MEDS: CEFTRIAXONE 1G VIAL IVP SCH (20:10)
[2021-06-23] MEDS: FAMOTIDINE 20MG TAB PO SCH (20:11)
[2021-06-24] VITALS: BP 110/51
[2021-06-24] MEDS: SUCRALFATE 1 GM TABLET PO SCH ×3 (06:08→17:06)
[2021-06-24] MEDS: NYSTATIN 100000 UNIT/ML 5ML UDCUP PO SCH ×3 (06:08→22:06)
[2021-06-24] MEDS: OCTREOTIDE ACETATE 100 MCG/ML AMP SQ SCH ×3 (06:12→22:06)
[2021-06-24] MEDS: INSULIN HUMULIN R 100 UNIT/ML 3ML SQ SCH ×4 (06:14→20:46)
[2021-06-24 06:58] LABS: BASOPHILS % (AUTO) 0.2 % (0.0-5.0); EOSINOPHILS % (AUTO) 3.7 % (0.0-8.0); HEMATOCRIT 22.3 % (36-48); LYMPHOCYTES % (AUTO) 25.9 % (21.0-51.0); MEAN CORPUSCULAR HEMOGLOBIN 31.6 pg (27.0-33.0); MEAN CORPUSCULAR HGB CONC 33.2 g/dL (32.0-36.0); MEAN CORPUSCULAR VOLUME 95.3 fL (79-99); MONOCYTES % (AUTO) 12.8 % (3.0-13.0); PLATELET COUNT (AUTO) 67 K/uL (130-400); RED BLOOD CELL COUNT(AUTO) 2.34 MIL/uL (4.00-5.50); RED CELL DISTRIBUTION WIDTH 19.5 % (11.0-15.5); WHITE BLOOD COUNT (AUTO) 4.9 K/uL (4.8-10.8)
[2021-06-24 07:13] LABS: CREATININE 3.6 mg/dL (0.5-1.5); POTASSIUM 3.6 mmol/L (3.5-5.1)
[2021-06-24 08:23] VITALS: BP 104/50
[2021-06-24] MEDS: ALBUMIN (HUMAN) 25% 100 ML IV SCH (09:11)
[2021-06-24] MEDS: LACTULOSE 20 GM/30 ML UDCUP PO SCH (09:12)
[2021-06-24] MEDS: HYDROCORTISONE 25 MG SUPPOSITORY PR SCH ×2 (09:12→20:30)
[2021-06-24] MEDS: SODIUM BICARBONATE 650 MG TAB PO SCH ×2 (09:12→20:31)
[2021-06-24] MEDS: MIDODRINE HCL 5 MG TABLET PO SCH ×3 (09:12→20:30)
[2021-06-24 11:15] VITALS: BP 124/49
[2021-06-24] MEDS: ATORVASTATIN 40 MG TABLET PO SCH (17:06)
[2021-06-24 17:10] VITALS: BP 123/52
[2021-06-24 19:00] VITALS: BP 131/48
[2021-06-24] MEDS: FAMOTIDINE 20MG TAB PO SCH (20:30)
[2021-06-24] MEDS: CEFTRIAXONE 1G VIAL IVP SCH (20:30)
[2021-06-25] VITALS (7 sets, daily range): BP systolic 116–143; BP diastolic 47–62
[2021-06-25] MEDS: OCTREOTIDE ACETATE 100 MCG/ML AMP SQ SCH ×3 (06:04→21:24)
[2021-06-25] MEDS: NYSTATIN 100000 UNIT/ML 5ML UDCUP PO SCH ×3 (06:04→21:22)
[2021-06-25] MEDS: SUCRALFATE 1 GM TABLET PO SCH ×3 (06:22→16:40)
[2021-06-25] MEDS: INSULIN HUMULIN R 100 UNIT/ML 3ML SQ SCH ×4 (06:22→21:00)
[2021-06-25] MEDS: MIDODRINE HCL 5 MG TABLET PO SCH ×3 (10:26→21:00)
[2021-06-25] MEDS: HYDROCORTISONE 25 MG SUPPOSITORY PR SCH ×2 (10:26→21:08)
[2021-06-25] MEDS: SODIUM BICARBONATE 650 MG TAB PO SCH ×2 (10:26→21:08)
[2021-06-25] MEDS: LACTULOSE 20 GM/30 ML UDCUP PO SCH (10:26)
[2021-06-25] MEDS: ATORVASTATIN 40 MG TABLET PO SCH (16:40)
[2021-06-25] MEDS ORDERED: FAMO40TA7 PO (18:44)
[2021-06-25] MEDS ORDERED: MIDO10TA PO (18:44)
[2021-06-25] MEDS: CEFTRIAXONE 1G VIAL IVP SCH (21:08)
[2021-06-25] MEDS: FAMOTIDINE 20MG TAB PO SCH (21:08)
[2021-06-26] VITALS (9 sets, daily range): BP systolic 99–129; BP diastolic 39–73
[2021-06-26] MEDS: NYSTATIN 100000 UNIT/ML 5ML UDCUP PO SCH ×3 (06:00→21:23)
[2021-06-26] MEDS: OCTREOTIDE ACETATE 100 MCG/ML AMP SQ SCH ×3 (06:00→21:24)
[2021-06-26] MEDS: INSULIN HUMULIN R 100 UNIT/ML 3ML SQ SCH ×4 (07:30→21:25)
[2021-06-26] MEDS: MIDODRINE HCL 5 MG TABLET PO SCH ×3 (09:39→21:23)
[2021-06-26] MEDS: LACTULOSE 20 GM/30 ML UDCUP PO SCH (09:39)
[2021-06-26] MEDS: SODIUM BICARBONATE 650 MG TAB PO SCH ×2 (09:39→21:23)
[2021-06-26] MEDS: HYDROCORTISONE 25 MG SUPPOSITORY PR SCH ×2 (09:40→21:23)
[2021-06-26] MEDS: SUCRALFATE 1 GM TABLET PO SCH ×3 (09:41→17:01)
[2021-06-26] MEDS ORDERED: ALBUMIN (HUMAN) 25% 150 ML IV SCH (16:30)
[2021-06-26] MEDS: ATORVASTATIN 40 MG TABLET PO SCH (17:01)
[2021-06-26] MEDS: CEFTRIAXONE 1G VIAL IVP SCH (21:22)
[2021-06-26] MEDS: FAMOTIDINE 20MG TAB PO SCH (21:22)
[2021-06-27 04:10] VITALS: BP 99/36
[2021-06-27] MEDS: NYSTATIN 100000 UNIT/ML 5ML UDCUP PO SCH (06:14)
[2021-06-27] MEDS: SUCRALFATE 1 GM TABLET PO SCH ×2 (06:15→11:56)
[2021-06-27] MEDS: OCTREOTIDE ACETATE 100 MCG/ML AMP SQ SCH (06:15)
[2021-06-27] MEDS: INSULIN HUMULIN R 100 UNIT/ML 3ML SQ SCH ×2 (06:16→12:02)
[2021-06-27 07:48] VITALS: BP 116/67
[2021-06-27] MEDS: HYDROCORTISONE 25 MG SUPPOSITORY PR SCH (08:18)
[2021-06-27] MEDS: LACTULOSE 20 GM/30 ML UDCUP PO SCH (08:18)
[2021-06-27] MEDS: MIDODRINE HCL 5 MG TABLET PO SCH (08:18)
[2021-06-27] MEDS: SODIUM BICARBONATE 650 MG TAB PO SCH (08:18)
[2021-06-27 11:31] VITALS: BP 90/53
== END 2021-06-27 15:29 | disposition hospice, home (50) | DRG 377 ==
LOC: EDH 16:02 → EDHIP 17:15 → 4AH 06-10 02:14 → EDHIP 06-10 02:40 → 2DH 06-11 21:55 → 4BH 06-16 20:48
PROVIDERS: ADMIT Internal Medicine; ATTEND Internal Medicine
PROC: 05HY33Z Insertion of Infusion Device into Upper Vein, Percutaneous Approach (ICD-10-PCS; 2021-06-12)
PROC: 30233N1 Transfusion of Nonautologous Red Blood Cells into Peripheral Vein, Percutaneous Approach (ICD-10-PCS; principal; 2021-06-14)
PROC: 0DJD8ZZ Inspection of Lower Intestinal Tract, Via Natural or Artificial Opening Endoscopic (ICD-10-PCS; 2021-06-14)
PROC: 0W9G3ZZ Drainage of Peritoneal Cavity, Percutaneous Approach (ICD-10-PCS; 2021-06-26)
DX: K92.1 Melena (principal); E43 Unspecified severe protein-calorie malnutrition; R57.1 Hypovolemic shock; K76.7 Hepatorenal syndrome; D62 Acute posthemorrhagic anemia; N17.9 Acute kidney failure, unspecified; R18.8 Other ascites; K76.6 Portal hypertension; N18.4 Chronic kidney disease, stage 4 (severe); K74.69 Other cirrhosis of liver; K64.4 Residual hemorrhoidal skin tags; I12.9 Hypertensive chronic kidney disease with stage 1 through stage 4 chronic kidney disease, or unspecified chronic kidney disease; K62.3 Rectal prolapse; E87.5 Hyperkalemia; E11.22 Type 2 diabetes mellitus with diabetic chronic kidney disease; K21.9 Gastro-esophageal reflux disease without esophagitis; E78.00 Pure hypercholesterolemia, unspecified; I95.1 Orthostatic hypotension; E78.5 Hyperlipidemia, unspecified; Z68.21 Body mass index [BMI] 21.0-21.9, adult; D69.6 Thrombocytopenia, unspecified; D63.8 Anemia in other chronic diseases classified elsewhere; B37.9 Candidiasis, unspecified; E11.65 Type 2 diabetes mellitus with hyperglycemia; K59.00 Constipation, unspecified; R33.9 Retention of urine, unspecified; N13.9 Obstructive and reflux uropathy, unspecified; N32.89 Other specified disorders of bladder; Z79.899 Other long term (current) drug therapy; Z87.11 Personal history of peptic ulcer disease; Z90.710 Acquired absence of both cervix and uterus; Z90.49 Acquired absence of other specified parts of digestive tract; Z20.822 Contact with and (suspected) exposure to COVID-19
CPT/HCPCS: 36415; 36430; 36600; 45378; 49083; 71045; 74018; 74176; 76700; 76705; 76770; 76857; 80048; 80053; 81001; 82010; 82140; 82150; 82270; 82435; 82533; 82550; 82570; 82607; 82627; 82728; 82746; 82803; 82945; 82947; 82948; 83036; 83540; 83550; 83605; 83615; 83690; 83735; 83874; 83880; 83986; 84100; 84132; 84145; 84157; 84295; 84300; 84443; 84484; 85014; 85018; 85025; 85027; 85045; 85610; 85651; 85730; 86140; 86850; 86900; 86901; 86923; 87040; 87071; 87088; 87205; 87635; 87804; 89051; 93005; 93306; 93356; 97039; C1729; C1751; C1894; C9113; G0378; J0610; J0696; J0834; J1720; J1815; J2354; J2543; J2704; J3475; J3490; J7030; J7040; J7050; P9016; P9045; P9046; P9047

== ENCOUNTER → 2022-01-18 | Outpatient (CLI) | payer OTHER ==
[~2022-01-18] MED LIST: ALBUMIN (HUMAN) 25% 200 ML IV SCH; FAMO40TA7 PO; LACT10SO75 PO; LIDOCAINE HCL MPF 1% 5ML VIAL ONE; MIDO10TA PO
[2022-01-18 10:38] LABS: BASOPHILS % (AUTO) 0.5 % (0.0-5.0); HEMATOCRIT 33.3 % (36-48); LYMPHOCYTES % (AUTO) 15.1 % (21.0-51.0); MEAN CORPUSCULAR HEMOGLOBIN 32.7 pg (27.0-33.0); MEAN CORPUSCULAR HGB CONC 32.4 g/dL (32.0-36.0); MEAN CORPUSCULAR VOLUME 100.9 fL (79-99); MONOCYTES % (AUTO) 9.9 % (3.0-13.0); NEUTROPHILS % (AUTO) 72.2 % (40.0-77.0); PLATELET COUNT (AUTO) 126 K/uL (130-400); RED CELL DISTRIBUTION WIDTH 16.8 % (11.0-15.5)
[2022-01-18 10:46] LABS: INR 1.19 (0.85-1.15); PROTHROMBIN TIME 12.8 SEC (9.6-11.6)
[2022-01-18 10:50] LABS: ALBUMIN 2.1 g/dL (3.5-5.0); BILIRUBIN,TOTAL 1.1 mg/dL (0.2-1.0); CREATININE 2.4 mg/dL (0.5-1.5); TOTAL PROTEIN, SERUM 6.6 g/dL (6.0-8.3)
[2022-01-18 14:27] LABS: APPEARANCE BODY FLUID CLEAR (CLEAR); SPECIMENTYPE,BODY FLUID ASCITES
[2022-01-18 14:28] LABS: BODY FLUID WBC 40 /cu. mm.; COLOR,BODY FLUID LT YELLOW (LT YELLOW); TOTAL VOLUME,BODY FLUID 7400 mL
[2022-01-18 14:29] LABS: BODY FLUID RBC 49 /cu. mm.
[2022-01-18 14:46] LABS: BF EOSINOPHIL 2 %; BF LYMPHOCYTE 64 %; BF MESOTHELIAL 7 %; BF MONOCYTE 2 %
== END | disposition home or self-care (01) ==
LOC: RAH 09:31
PROVIDERS: ATTEND Internal Medicine Gastroenterology
DX: R18.8 Other ascites (principal); K74.60 Unspecified cirrhosis of liver; R06.02 Shortness of breath; I10 Essential (primary) hypertension; E78.5 Hyperlipidemia, unspecified; E11.9 Type 2 diabetes mellitus without complications; D64.9 Anemia, unspecified; K72.90 Hepatic failure, unspecified without coma; I85.00 Esophageal varices without bleeding; Z79.01 Long term (current) use of anticoagulants; Z98.49 Cataract extraction status, unspecified eye; Z90.49 Acquired absence of other specified parts of digestive tract
CPT/HCPCS: 36415; 49083; 71046; 80053; 85025; 85610; 87071; 87205; 89051; C1729; J3490; P9046; 96365

== ENCOUNTER → 2022-01-25 | Outpatient (CLI) | payer OTHER ==
[2022-01-25 18:07] LABS: APPEARANCE BODY FLUID CLEAR (CLEAR); COLOR,BODY FLUID YELLOW (LT YELLOW); SPECIMENTYPE,BODY FLUID ASCITES; TOTAL VOLUME,BODY FLUID 6500 mL
[2022-01-25 18:08] LABS: BODY FLUID RBC 102 /cu. mm.; BODY FLUID WBC 85 /cu. mm.
[2022-01-25 18:13] LABS: BF LYMPHOCYTE 58 %; BF OTHER CELLS 2
== END | disposition home or self-care (01) ==
LOC: RAH 10:33
PROVIDERS: ATTEND Internal Medicine Gastroenterology
DX: R18.8 Other ascites (principal); K74.60 Unspecified cirrhosis of liver; I10 Essential (primary) hypertension; E78.5 Hyperlipidemia, unspecified; E11.9 Type 2 diabetes mellitus without complications; D64.9 Anemia, unspecified; I85.00 Esophageal varices without bleeding; K72.90 Hepatic failure, unspecified without coma; Z98.49 Cataract extraction status, unspecified eye; Z98.890 Other specified postprocedural states; Z79.899 Other long term (current) drug therapy; Z79.01 Long term (current) use of anticoagulants
CPT/HCPCS: 49083; 87071; 87205; 89051; C1729; J3490; 96365

== ENCOUNTER → 2022-02-01 | Outpatient (CLI) | payer OTHER ==
[~2022-02-01] MED LIST changes: +ACET325T51 PO; +ATEN25TA PO; +FURO40TA5 PO; +GLIP5TAB11 PO; -LIDOCAINE HCL MPF 1% 5ML VIAL ONE; +ONDA-104 PO; +SPIR50TA5 PO
[2022-02-01 16:00] LABS: APPEARANCE BODY FLUID SLIGHTLY CLOUDY (CLEAR); BODY FLUID RBC 114 /cu. mm.; BODY FLUID WBC 89 /cu. mm.; COLOR,BODY FLUID YELLOW (LT YELLOW); SPECIMENTYPE,BODY FLUID ASCITES; TOTAL VOLUME,BODY FLUID 5300 mL
[2022-02-01 16:12] LABS: BF EOSINOPHIL 2 %; BF LYMPHOCYTE 66 %; BF MESOTHELIAL 4 %; BF MONOCYTE 2 %
== END | disposition home or self-care (01) ==
LOC: RAH 10:03
PROVIDERS: ATTEND Internal Medicine Gastroenterology
DX: R18.8 Other ascites (principal); K74.60 Unspecified cirrhosis of liver; K72.90 Hepatic failure, unspecified without coma; I85.00 Esophageal varices without bleeding; I10 Essential (primary) hypertension; E11.9 Type 2 diabetes mellitus without complications; E78.5 Hyperlipidemia, unspecified; R06.02 Shortness of breath; D64.9 Anemia, unspecified; Z79.899 Other long term (current) drug therapy; Z98.49 Cataract extraction status, unspecified eye; Z90.49 Acquired absence of other specified parts of digestive tract; Z79.01 Long term (current) use of anticoagulants
CPT/HCPCS: 49083; 89051; 87071; 87205; 88305; 88112; P9046; C1729; 96365

== ENCOUNTER → 2022-02-08 | Outpatient (CLI) | payer OTHER ==
[~2022-02-08] MED LIST changes: -ACET325T51 PO; -ATEN25TA PO; -FURO40TA5 PO; -GLIP5TAB11 PO; +LIDOCAINE HCL MPF 1% 5ML VIAL ONE; -ONDA-104 PO; -SPIR50TA5 PO
[2022-02-08 12:45] LABS: APPEARANCE BODY FLUID CLEAR (CLEAR); COLOR,BODY FLUID YELLOW (LT YELLOW); SPECIMENTYPE,BODY FLUID ASCITES; TOTAL VOLUME,BODY FLUID 6400 mL
[2022-02-08 12:49] LABS: BODY FLUID RBC 185 /cu. mm.; BODY FLUID WBC 172 /cu. mm.
[2022-02-08 13:18] LABS: BF LYMPHOCYTE 61 %; BF MESOTHELIAL 24 %; BF MONOCYTE 10 %
== END | disposition home or self-care (01) ==
LOC: RAH 08:10
PROVIDERS: ATTEND Internal Medicine Gastroenterology
DX: R18.8 Other ascites (principal); K74.60 Unspecified cirrhosis of liver; I10 Essential (primary) hypertension; E11.9 Type 2 diabetes mellitus without complications; E78.5 Hyperlipidemia, unspecified; K72.90 Hepatic failure, unspecified without coma; D64.9 Anemia, unspecified; Z79.899 Other long term (current) drug therapy; Z98.890 Other specified postprocedural states; Z79.01 Long term (current) use of anticoagulants; Z90.49 Acquired absence of other specified parts of digestive tract
CPT/HCPCS: 49083; 87071; 87205; 89051; C1729; J3490; P9046; 96365

== ENCOUNTER → 2022-02-15 | Outpatient (CLI) | payer OTHER ==
[~2022-02-15] MED LIST changes: +ACET325T51 PO; +ALBUMIN (HUMAN) 25% 200 ML IV PRN; -ALBUMIN (HUMAN) 25% 200 ML IV SCH; +ATEN25TA PO; +FURO40TA5 PO; +GLIP5TAB11 PO; -LIDOCAINE HCL MPF 1% 5ML VIAL ONE; +ONDA-104 PO; +SPIR50TA5 PO
[2022-02-15 13:55] LABS: APPEARANCE BODY FLUID CLEAR (CLEAR); COLOR,BODY FLUID YELLOW (LT YELLOW); SPECIMENTYPE,BODY FLUID ASCITES; TOTAL VOLUME,BODY FLUID 6000 mL
[2022-02-15 13:56] LABS: BODY FLUID RBC 108 /cu. mm.; BODY FLUID WBC 121 /cu. mm.
[2022-02-15 15:16] LABS: BF LYMPHOCYTE 71 %; BF MESOTHELIAL 4 %; BF MONOCYTE 3 %
== END | disposition home or self-care (01) ==
LOC: RAH 08:27
PROVIDERS: ATTEND Internal Medicine Gastroenterology
DX: R18.8 Other ascites (principal)
CPT/HCPCS: 49083; 89051; 87071; 87205; 88305; 88112; C1729

== ENCOUNTER → 2022-02-22 | Outpatient (CLI) | payer OTHER ==
[~2022-02-22] MED LIST changes: -ACET325T51 PO; -ALBUMIN (HUMAN) 25% 200 ML IV PRN; +ALBUMIN (HUMAN) 25% 200 ML IV SCH; -ATEN25TA PO; -FURO40TA5 PO; -GLIP5TAB11 PO; +LIDOCAINE HCL 1% MDV 50ML VIAL ONE; -ONDA-104 PO; -SPIR50TA5 PO
[2022-02-22 10:37] LABS: BASOPHILS % (AUTO) 0.6 % (0.0-5.0); EOSINOPHILS % (AUTO) 3.1 % (0.0-8.0); HEMATOCRIT 30.4 % (36-48); LYMPHOCYTES % (AUTO) 23.5 % (21.0-51.0); MEAN CORPUSCULAR HEMOGLOBIN 33.1 pg (27.0-33.0); MEAN CORPUSCULAR HGB CONC 32.9 g/dL (32.0-36.0); MEAN CORPUSCULAR VOLUME 100.7 fL (79-99); MONOCYTES % (AUTO) 9.8 % (3.0-13.0); NEUTROPHILS % (AUTO) 62.8 % (40.0-77.0); PLATELET COUNT (AUTO) 111 K/uL (130-400); RED BLOOD CELL COUNT(AUTO) 3.02 MIL/uL (4.00-5.50); RED CELL DISTRIBUTION WIDTH 15.5 % (11.0-15.5); WHITE BLOOD COUNT (AUTO) 4.9 K/uL (4.8-10.8)
[2022-02-22 10:44] LABS: INR 1.09 (0.85-1.15); PROTHROMBIN TIME 11.8 SEC (9.6-11.6)
[2022-02-22 10:53] LABS: ALBUMIN 3.3 g/dL (3.5-5.0); BILIRUBIN,TOTAL 1.2 mg/dL (0.2-1.0); CREATININE 2.3 mg/dL (0.5-1.5); POTASSIUM 4.1 mmol/L (3.5-5.1); TOTAL PROTEIN, SERUM 6.6 g/dL (6.0-8.3)
[2022-02-22 12:28] LABS: APPEARANCE BODY FLUID CLEAR (CLEAR); COLOR,BODY FLUID YELLOW (LT YELLOW); SPECIMENTYPE,BODY FLUID ASCITES
[2022-02-22 12:29] LABS: BODY FLUID WBC 119 /cu. mm.; TOTAL VOLUME,BODY FLUID 6900 mL
[2022-02-22 12:30] LABS: BODY FLUID RBC 108 /cu. mm.
[2022-02-22 13:26] LABS: BF LYMPHOCYTE 62 %; BF MESOTHELIAL 22 %; BF MONOCYTE 7 %
== END | disposition home or self-care (01) ==
LOC: RAH 09:09
PROVIDERS: ATTEND Internal Medicine Gastroenterology
DX: R18.8 Other ascites (principal); I10 Essential (primary) hypertension; E78.5 Hyperlipidemia, unspecified; E11.9 Type 2 diabetes mellitus without complications; Z79.01 Long term (current) use of anticoagulants; Z79.899 Other long term (current) drug therapy; Z90.49 Acquired absence of other specified parts of digestive tract
CPT/HCPCS: 36415; 49083; 80053; 85025; 85610; 87071; 87205; 89051; 96365; C1729; J3490; P9046

== ENCOUNTER → 2022-03-01 | Outpatient (CLI) | payer OTHER ==
[~2022-03-01] MED LIST changes: +ACET325T51 PO; +ALBUMIN (HUMAN) 25% 200 ML IV PRN; -ALBUMIN (HUMAN) 25% 200 ML IV SCH; +ATEN25TA PO; +FURO40TA5 PO; +GLIP5TAB11 PO; +ONDA-104 PO; +SPIR50TA5 PO
[2022-03-01 14:45] LABS: APPEARANCE BODY FLUID SLIGHTLY CLOUDY (CLEAR); COLOR,BODY FLUID YELLOW (LT YELLOW); SPECIMENTYPE,BODY FLUID ASCITES; TOTAL VOLUME,BODY FLUID 6000 mL
[2022-03-01 14:46] LABS: BODY FLUID RBC 68 /cu. mm.; BODY FLUID WBC 99 /cu. mm.
[2022-03-01 14:49] LABS: BF LYMPHOCYTE 60 %; BF MESOTHELIAL 16 %
== END | disposition home or self-care (01) ==
LOC: RAH 08:26
PROVIDERS: ATTEND Internal Medicine Gastroenterology
DX: R18.8 Other ascites (principal); K74.60 Unspecified cirrhosis of liver; K72.90 Hepatic failure, unspecified without coma; I10 Essential (primary) hypertension; E11.9 Type 2 diabetes mellitus without complications; E78.5 Hyperlipidemia, unspecified; D64.9 Anemia, unspecified; Z79.899 Other long term (current) drug therapy; Z98.49 Cataract extraction status, unspecified eye; Z79.01 Long term (current) use of anticoagulants; Z90.49 Acquired absence of other specified parts of digestive tract
CPT/HCPCS: 49083; 89051; 87071; 87205; 88305; 88112; J3490; C1729; 96365

== ENCOUNTER → 2022-03-08 | Outpatient (CLI) | payer OTHER ==
[~2022-03-08] MED LIST changes: -ACET325T51 PO; +ALBUMIN (HUMAN) 25% 200 ML IV ONE; -ALBUMIN (HUMAN) 25% 200 ML IV PRN; -ATEN25TA PO; -FURO40TA5 PO; -GLIP5TAB11 PO; -LIDOCAINE HCL 1% MDV 50ML VIAL ONE; -ONDA-104 PO; -SPIR50TA5 PO
[2022-03-08 13:15] LABS: SPECIMENTYPE,BODY FLUID ASCITES
[2022-03-08 13:16] LABS: APPEARANCE BODY FLUID CLEAR (CLEAR); COLOR,BODY FLUID YELLOW (LT YELLOW); TOTAL VOLUME,BODY FLUID 5700 mL
[2022-03-08 13:30] LABS: BODY FLUID RBC 105 /cu. mm.; BODY FLUID WBC 158 /cu. mm.
[2022-03-08 14:01] LABS: BF LYMPHOCYTE 49 %; BF MESOTHELIAL 36 %; BF MONOCYTE 10 %
== END | disposition home or self-care (01) ==
LOC: RAH 08:13
PROVIDERS: ATTEND Internal Medicine Gastroenterology
DX: R18.8 Other ascites (principal); K74.69 Other cirrhosis of liver; K72.90 Hepatic failure, unspecified without coma; E78.5 Hyperlipidemia, unspecified; I10 Essential (primary) hypertension; D64.9 Anemia, unspecified; E11.9 Type 2 diabetes mellitus without complications; Z90.49 Acquired absence of other specified parts of digestive tract; Z98.49 Cataract extraction status, unspecified eye; Z98.890 Other specified postprocedural states; Z79.01 Long term (current) use of anticoagulants
CPT/HCPCS: 49083; 87071; 87205; 89051; C1729; P9046; 96365

== ENCOUNTER → 2022-03-17 | Outpatient (CLI) | payer OTHER ==
[~2022-03-17] MED LIST changes: -ALBUMIN (HUMAN) 25% 200 ML IV ONE; +ALBUMIN (HUMAN) 25% 200 ML IV SCH; +LIDOCAINE HCL 1% MDV 50ML VIAL ONE
[2022-03-17 13:38] LABS: APPEARANCE BODY FLUID CLEAR (CLEAR); COLOR,BODY FLUID YELLOW (LT YELLOW); SPECIMENTYPE,BODY FLUID ASCITES; TOTAL VOLUME,BODY FLUID 6400 mL
[2022-03-17 13:55] LABS: BODY FLUID WBC 137 /cu. mm.
[2022-03-17 13:56] LABS: BODY FLUID RBC 90 /cu. mm.
[2022-03-17 14:19] LABS: BF LYMPHOCYTE 66 %; BF MESOTHELIAL 21 %; BF MONOCYTE 12 %
== END | disposition home or self-care (01) ==
LOC: RAH 09:45
PROVIDERS: ATTEND Internal Medicine Gastroenterology
DX: R18.8 Other ascites (principal); K74.60 Unspecified cirrhosis of liver; K72.90 Hepatic failure, unspecified without coma; I10 Essential (primary) hypertension; E78.5 Hyperlipidemia, unspecified; E11.9 Type 2 diabetes mellitus without complications; Z90.49 Acquired absence of other specified parts of digestive tract; Z98.890 Other specified postprocedural states; Z98.49 Cataract extraction status, unspecified eye; Z79.899 Other long term (current) drug therapy
CPT/HCPCS: 49083; 87071; 87205; 89051; C1729; J3490; P9046; 96365

== ENCOUNTER → 2022-03-24 | Outpatient (CLI) | payer OTHER ==
[~2022-03-24] MED LIST changes: +ACET325T51 PO; +ATEN25TA PO; +FURO40TA5 PO; +GLIP5TAB11 PO; -LIDOCAINE HCL 1% MDV 50ML VIAL ONE; +LIDOCAINE HCL MPF 1% 5ML VIAL ONE; +ONDA-104 PO; +SPIR50TA5 PO
[2022-03-24 10:34] LABS: HEMATOCRIT 36.5 % (36-48); MEAN CORPUSCULAR HGB CONC 33.4 g/dL (32.0-36.0); MEAN CORPUSCULAR VOLUME 98.6 fL (79-99); PLATELET COUNT (AUTO) 162 K/uL (130-400); WHITE BLOOD COUNT (AUTO) 4.1 K/uL (4.8-10.8)
[2022-03-24 10:47] LABS: ALBUMIN 2.9 g/dL (3.5-5.0); CREATININE 3.5 mg/dL (0.5-1.5); TOTAL PROTEIN, SERUM 6.8 g/dL (6.0-8.3)
[2022-03-24 10:49] LABS: INR 1.21 (0.85-1.15)
[2022-03-24 11:21] LABS: BAND NEUTROPHILS % (MANUAL) 11 % (0-2); LYMPHOCYTES % (MANUAL) 7 % (22-44); MAN.DIFF COMMENT-IMPRESSION MANUAL DIFFERENTIAL; MONOCYTES % (MANUAL) 6 % (2-9); SEGMENTED NEUTROPHILS % 76 % (40-70)
[2022-03-24 11:22] LABS: PLATELET MORPHOLOGY COMMENT ADEQUATE
[2022-03-24 14:08] LABS: APPEARANCE BODY FLUID CLOUDY (CLEAR); COLOR,BODY FLUID YELLOW (LT YELLOW); SPECIMENTYPE,BODY FLUID ASCITES
[2022-03-24 14:09] LABS: BODY FLUID WBC 8188 /cu. mm.; TOTAL VOLUME,BODY FLUID 5000 mL
[2022-03-24 14:10] LABS: BODY FLUID RBC 1290 /cu. mm.
[2022-03-24 14:33] LABS: BF LYMPHOCYTE 2 %; BF MESOTHELIAL 6 %; BF MONOCYTE 2 %
== END | disposition home or self-care (01) ==
LOC: RAH 10:05
PROVIDERS: ATTEND Internal Medicine Gastroenterology
DX: R18.8 Other ascites (principal); K74.60 Unspecified cirrhosis of liver; K72.90 Hepatic failure, unspecified without coma; I10 Essential (primary) hypertension; E78.5 Hyperlipidemia, unspecified; E11.9 Type 2 diabetes mellitus without complications; Z90.49 Acquired absence of other specified parts of digestive tract; Z98.890 Other specified postprocedural states; Z98.49 Cataract extraction status, unspecified eye; Z79.899 Other long term (current) drug therapy; Z79.01 Long term (current) use of anticoagulants
CPT/HCPCS: 49083; 80053; 85025; 89051; 85610; 87071; 87077; 87186; 87205; 36415; P9046; C1729; 96365; J3490